=== PATIENT | female | born 1965 | race Caucasian/White ===

== ENCOUNTER 2016-04-13 21:13 | Inpatient (IN) | payer OTHER ==
--- NOTE | ~2016-04-13 | HP ---
History And Physical [facility] [address] [place]. [address] NAME: KARLA BLANK : 67 STATUS : ADM IN [facility]#: [id number] AGE: 50 ADM/REG DATE : 04/13/16 MR#: [id number] REPORT SERV DATE: 04/14/16 DICTATED BY: PADMINI SPENCER DATE: 04/13/16 REPORT STATUS : Draft TRANSCRIBED BY: MODManuel DATE: 04/13/16 DATE OF ADMISSION: 04/13/2016 CHIEF COMPLAINT: Possible overdose, unresponsive. HISTORY OF PRESENT ILLNESS: The patient is a 50-year-old female with history of back pain, unclear cardiac and respiratory issues, on chronic narcotics, Ambien and baclofen, who presents unresponsive. Upon arrival, the patient is unresponsive, unable to give history or presenting issues. The patient is accompanied by daughter who was not at site, but was called by EMS family member who contacted the daughter about being unresponsive state. From daughter's recollection, symptoms of unresponsive has been happening throughout the day, severe, although the patient will know to deep stimuli and painful stimuli. The patient does not respond verbally, is having occasional movement of foot. The patient began with multiple doses of Narcan without resolution of symptoms. Has no reported pain and associated symptoms are not available. There was no reported loss of bowel or bladder function, although daughter who is at bedside reports that there may have been a convulsive component, but she is unclear of this as the patient does not have any seizure history. There are no worsening or relieving symptoms. The patient is still fairly unresponsive, but does show slight improvement while staying in the emergency room. The patient is now spontaneously moving her lower extremity and responds with moaning with even glass handler stimuli. REVIEW OF SYSTEMS: Unable to obtain secondary to mental status. PAST MEDICAL HISTORY: Daughter, who is at bedside, is fairly unclear of medical history, but does report the patient does have a heart and lung disease and thyroid disorder and hernia that has been infected and difficult to resolve. SURGICAL HISTORY: Has had multiple female surgeries, hernia repair, and left knee total replacement. SOCIAL HISTORY: To her daughter's recollection, no smoking, but does have smoke exposure with and does have positive snuff. The patient still has snuff currently in her mouth that was removed. Rare alcohol and no illicits reported. FAMILY HISTORY: Diabetes, heart and lung disease. ALLERGIES: NO KNOWN DRUG ALLERGIES. MEDICATIONS: Levothyroxine, potassium, lisinopril, Lopressor, Zantac, Lasix, gabapentin, Advair, Ambien, [place], and baclofen. PHYSICAL EXAMINATION: VITAL SIGNS: Blood pressure 102/37 initially, currently 117/62; heart rate 82; respirations 24; temperature of 97.6. History And Physical [address] [address] NAME: KARLA BLANK : 67 STATUS : ADM IN PAT#: [id number] AGE: 50 ADM/REG DATE : 04/13/16 MR#: [id number] REPORT SERV DATE: 04/14/16 DICTATED BY: PADMINI SPENCER DATE: 04/13/16 REPORT STATUS : Draft TRANSCRIBED BY: LARON DATE: 04/13/16 GENERAL: Morbidly obese. EYES: Miotic, but no scleral icterus. ENT: Dry mucous membranes with snuff in oropharynx. Nares patent. RESPIRATORY: Mildly tachypneic and decreased breath sounds in lower lung dejesus, but clear upper lung dejesus. No stridor. Does have spontaneous cough. CARDIOVASCULAR: Regular rate. No rubs or gallops. Bilateral edema. GASTROINTESTINAL: Soft, nontender. Old surgical site with hernia defect. GENITOURINARY: Hall placed. MUSCULOSKELETAL: Moves extremities to deep nerve stimulation on upper hands, difficult for lower extremity. SKIN: Warm, dry. Cap refill less than 2 seconds. LYMPH: No cervical lymphadenopathy, but large neck. HEME: No bleeding or bruising. NEURO: GCS approximately 9 to localizing pain, incomprehensible sounds, and response to pain, but remainder of neuro exam difficult to assess due to mental status. Gag reflex reported as positive. The patient does have spontaneous cough. PSYCH: Unable to assess due to mental status. LABORATORY DATA: EKG, normal sinus rhythm, rate 77, QTc 463. The pH 7.36, pCO2 of 53, pO2 of 69, bicarb 29.5. Brain without contrast, no acute pathology, indeterminate age, mild right ethmoid sinus disease. Lactate 1.4. UDS positive for benzos and opioids. BMP grossly within normal limits, mildly low albumin at 2.9, glucose 116, calcium 8.2. Tylenol, troponins, salicylic acid, and alcohol level, all negative. CBC: WBC count 4.5, H and H 11.8 and 37.4, MCV 100, platelets 122. INR 1.1. Urinalysis grossly within normal limits. ASSESSMENT AND PLAN: 1. Acute encephalopathy. 2. Urinary retention. 3. Questionable convulsion. 4. Morbid obesity. 5. Hypothyroidism. 6. Hypertension. 7. Chronic narcotic baclofen, Ambien dependence. PLAN: 1. For acute mental status, acute encephalopathy, unclear as the patient was reported to have taken excess medication and also taking her 's medication. No response to multiple doses of Narcan. While the time has come through our emergency room, the patient has had only increased responsive to tactile stimuli. Questionable baclofen toxicity with acute urinary retention, 1300 mL obtained from Hall. There are unconfirmed reports of possible convulsion state. This may also be from medication, either intoxication or withdrawal, may benefit from EEG. 2. Urinary retention. Hall placed. 3. Questionable convulsion, but no reported loss of bowel or bladder during episode. No prior seizure history. We will obtain EEG, is on multiple medications particularly History And Physical [address] [address] NAME: KARLA BLANK : 67 STATUS : ADM IN [facility]#: [id number] AGE: 50 ADM/REG DATE : 04/13/16 MR#: [id number] REPORT SERV DATE: 04/14/16 DICTATED BY: PADMINI SPENCER DATE: 04/13/16 REPORT STATUS : Draft TRANSCRIBED BY: MODManuel DATE: 04/13/16 baclofen, Ambien, gabapentin, and narcotics. Possible acute withdrawal could cause or acute intoxication could cause similar symptoms. 4. Morbid obesity. Needs to lose weight. 5. Hypothyroidism, on replacement. Check thyroid. 6. Hypertension, permissive at this time. 7. Chronic narcotic use and medication dependence. We will need to monitor. Once history able to be obtained from the patient and family, may need further evaluation, currently no reports of intentional overdose has been reported, but will need to have clarification once the patient is able to report. Care to be resumed by Medicine Team in a.m. as the patient is able to preserve airway, breathing, blood pressure, oxygenation. We will monitor on telemetry. If any decompensation, may require higher level of monitoring. This has been discussed with daughter who is at bedside. DAVE/LARON Padmini Spencer MD / [id number] CC: Fabian Sahu M.D.
--- NOTE | ~2016-04-13 | DS ---
Discharge Summary [facility] [address] [place]. [address] NAME: KARLA BLANK : 67 STATUS : DIS IN PAT#: [id number] AGE: 50 ADM/REG DATE : 04/13/16 MR#: [id number] REPORT SERV DATE: 04/16/16 DICTATED BY: ALEJANDRO BENAVIDES DATE: 04/15/16 REPORT STATUS : Draft TRANSCRIBED BY: MODManuel DATE: 04/15/16 ADMISSION DATE: 04/13/2016 DISCHARGE DATE: 04/15/2016 PROCEDURES DONE: 1. On 04/13/2016 CT of the head without contrast, no acute intracranial pathology. 2. On 04/13/2016 chest x-ray: Pulmonary vascular congestion. This has developed since previous study. 3. On 04/14/2016 chest x-ray: Increased pulmonary vascular congestion compared to previous study. 4. On 04/14/2016 lower extremity DVT. No right or left lower extremity DVT demonstrated. 5. On 04/14/2016 EEG shows no significant abnormalities. Background is disorganized, which may be seen in encephalopathies. There was also a very prominent beta activity present which may be a drug effect. REASON FOR ADMISSION: Unresponsive questionable overdose. HISTORY OF HOSPITAL STAY: A 50-year-old white female with past medical history of back pain on chronic narcotics also with Ambien and baclofen, morbid obesity BMI of 65, hypothyroid, hypotension, presenting with unresponsive questionable overdose. The patient was seen today for further evaluation of her chief complaint. The patient stated that she remembers sleeping on the couch and waking up at the hospital. Family members were at bedside and noticed that the patient is back to her baseline. The patient did take a new medication which was baclofen. The patient states that she was drowsy after taking the medication. The patient felt that the baclofen may be causing her unresponsiveness and felt that she will not take the medication anymore. DISPOSITION: The patient is feeling fine. No complaints. ACTIVITY: As tolerated. DIET: Cardiac. INSTRUCTIONS UPON DISCHARGE: The patient will follow with primary care physician within one to two weeks' time. MEDICATIONS UPON DISCHARGE: 1. Zantac 150 mg p.o. daily. 2. Lasix 20 mg p.o. daily. 3. Gabapentin 300 mg p.o. t.i.d. 4. Synthroid 400 mcg p.o. daily. 5. Metoprolol 12.5 mg p.o. b.i.d. 6. Nystatin topical powder daily. 7. Potassium 10 mEq daily. 8. Lisinopril 10 mg p.o. q.h.s. 9. Advair 250/50 mcg two puffs b.i.d. Discharge Summary [address] [address] NAME: KARLA BLANK : 67 STATUS : DIS IN PAT#: [id number] AGE: 50 ADM/REG DATE : 04/13/16 MR#: [id number] REPORT SERV DATE: 04/16/16 DICTATED BY: ALEJANDRO BENAVIDES DATE: 04/15/16 REPORT STATUS : Draft TRANSCRIBED BY: LARON DATE: 04/15/16 10.Ambien 10 mg p.o. q.h.s. p.r.n. 11.[place] 10/325 mg one tab b.i.d. p.r.n. 12.[place] Headache Powder one packet p.o. b.i.d. p.r.n. DIAGNOSES UPON DISCHARGE: 1. Encephalopathy secondary to overdose with baclofen. 2. Morbid obesity. 3. Hypothyroid. 4. Hypertension. 5. Chronic pain. JOSE/LARON Alejandro Benavides MD / [id number] CC: Alejandro Benavides MD
--- NOTE | ~2016-04-13 | EEG ---
Electroencephalogram [facility] [address] [place]. [address] NAME: KARLA BLANK : 67 STATUS : ADM IN PAT#: [id number] AGE: 50 ADM/REG DATE : 04/13/16 MR#: [id number] REPORT SERV DATE: 04/15/16 DICTATED BY: AR ZIMMERMAN DATE: 04/14/16 REPORT STATUS : Draft TRANSCRIBED BY: LARON DATE: 04/14/16 EEG NUMBER: [id number]. HOURS OF SLEEP: 1 to 2. [employer] INSTRUCTOR: Davis Andrade. INTRODUCTION: This is an 18-channel EEG recorded with scalp electrodes in the International 10-20 system. The patient is a 50-year-old female with an acute encephalopathy and unresponsiveness. There was a question of possible seizure. MEDICATIONS: Include albuterol and Lovenox. She takes pain medications at home, but apparently had received Narcan in the hospital. DESCRIPTION: The background rhythm while awake consisted of a mixture of frequencies, poorly organized. The activity, however, was symmetric. There was very prominent beta activity present throughout the EEG. There was movement artifact present from frontal electrodes as well. Photic stimulation from the 1 through 21 hertz frequencies produced a symmetric driving response at the 11 through 15 hertz frequencies. Hyperventilation was not performed. She became drowsy marked by attenuation of the muscle activity, the appearance of later spindle activity which was seen symmetrically. Occasional vertex sharp waves were present. She had POSTs present from occipital head regions with sleep briefly. On the EKG lead, tachycardia is noted. IMPRESSION: THIS EEG SHOWS NO SIGNIFICANT ABNORMALITIES. THE BACKGROUND IS DISORGANIZED, WHICH MAY BE SEEN IN ENCEPHALOPATHIES. THERE IS ALSO VERY PROMINENT BETA ACTIVITY PRESENT, WHICH MAY BE A DRUG DEFECT. HILTON/LARON Ar Zimmerman M.D. / [id number] CC: Michael Douglas MD
[2016-04-13 19:48] LABS: WBC (NOT ORDERED) (RFLEX) 0 (0-5)
[2016-04-13 19:52] LABS: BASOPHILS 0.2 %; BASOPHILS ABSOLUTE 0.01 10/3/uL (0.0-0.16); EOSINOPHILS ABSOLUTE 0.31 10/3/uL (0.0-0.53); HEMOGLOBIN 11.8 g/dL (12.0-16.0); IMMATURE GRANULOCYTES 0.7 %; IMMATURE GRANULOCYTES ABSOLUTE 0.03 10/3/uL (0.0-0.11); LYMPHOCYTES 38.7 %; LYMPHOCYTES ABSOLUTE 1.72 10/3/uL (0.67-4.30); MEAN CORPUSCULAR HEMOGLOB 31.6 pg (26.0-34.0); MEAN PLATELET VOLUME 10.5 fL (9.2-13.0); MONOCYTES 9.7 %; MONOCYTES ABSOLUTE 0.43 10/3/uL (0.21-1.20); NEUTROPHILS 43.7 %; NEUTROPHILS ABSOLUTE 1.95 10/3/uL (2.02-8.40); PLATELET COUNT 122 10/3/uL (150-400); RED CELL COUNT 3.74 10/6/uL (4.0-5.6); WHITE BLOOD CELLS 4.5 10/3/uL (4.5-10.5)
[2016-04-13 19:53] LABS: HEMATOCRIT 37.4 % (36.0-48.0); MANUAL DIFF NO %; MEAN CORPUS HGB CONC 31.6 g/dL (32.0-36.0)
[2016-04-13 19:58] LABS: ASCORBIC ACID (UR NOT ORDER) NEG (NEG); BILIRUBIN, URINE NEGATIVE (NEG); ER URINALYSIS TAT 0 Hrs 12 Mins; KETONE, URINE NEGATIVE (NEG); LEUKOCYTE ESTERASE(NOT OR NEG (NEG); NITRITE (URINE) NEG (NEG)
[2016-04-13 20:02] LABS: INTERNATIONAL NORMAL RATI 1.1 UNITS (-); PROTIME (NOT ORD) 13.6 SEC (12.0-14.5)
[2016-04-13 20:07] LABS: A/G RATIO 0.7 (0.7-1.9); ALBUMIN 2.9 G/DL (3.5-5.0); ALKALINE PHOSPHATASE 83 U/L (45-117); BUN (BLOOD UREA NITROGEN) 10 MG/DL (6-23); CALCIUM, SERUM 8.2 MG/DL (8.5-10.4); CHLORIDE, SERUM 101 MMOL/L (96-112); CO2 (CARBON DIOXIDE) 32 MMOL/L (24-34); CPK 75 U/L (0-200); CREATININE 0.68 MG/DL (0.55-1.02); GFR AFRICAN AMERICAN 119 ML/MIN (>=60); GFR NON AFRICAN AMERICAN 103 ML/MIN (>=60); GLOBULIN 3.9 G/DL (2.5-4.1); GLUCOSE, SERUM 116 MG/DL (60-99); SGPT(ALT) 14 U/L (5-65); SODIUM, SERUM 139 MMOL/L (135-148); TOTAL BILIRUBIN 0.6 MG/DL (0-1.2); TOTAL PROTEIN 6.8 G/DL (6.0-8.5); TROPONIN I <0.02 NG/ML (<0.05)
[2016-04-13 20:09] LABS: POTASSIUM, SERUM 4.5 MMOL/L (3.5-5.3)
[2016-04-13 20:10] LABS: ACETAMINOPHEN LEVEL (TYLENOL) < 2.0 MCG/ML (10.0-20.0); ALCOHOL < 10 MG/DL (0); SALICYLATE < 1.7 MG/DL (-); SGOT(AST) 24 U/L (5-40)
[2016-04-13 20:12] LABS: AMPHETAMINES (NOT ORD) NEG (NEG); BARBITURATES (NOT ORDERED NEG (NEG); BENZODIAZEPINES (NOT ORD) POS (NEG); CANNABINOIDS (THC) NEG (NEG); COCAINE (NOT ORDERED) NEG (NEG); OPIATES POS (NEG); PHENCYCLIDINE(PCP) NEG (NEG); TRICYCLICS NEG (NEG)
[2016-04-13 20:28] LABS: LACTATE 1.4 MMOL/L (0.3-2.4)
[~2016-04-13 21:13] MED LIST: *UNABLE2; ADVAIR250 INH; AMB10 PO; AVELOX400 PO; DEMA20 PO; KDUR10 PO; KLOR-CON 1010 MEQ PO; L20 PO; LEVOTHROID25 MCG PO; LIOR10 PO; LOP25 PO; NEUR300 PO; NORCO1 TAB PO; PRIN10 PO; SYNTHROID200 MCG PO; ZANTAC 150 PO; ZANTAC150 MG PO; [UNRECOGNIZED DRUG - OTHER]
[2016-04-13 21:21] LABS: ALLENS TEST Pos; CARBOXYHEMOGLOBIN 2.3 % (0-3); HCO3 (ACTUAL BICARBONATE) 29.5 MEQ/L (23-27); HEMOBLOGIN CONTENT 12.9 G/DL (12-16); INSTRUMENT SERIAL # 8087; METHEMOGLOBIN 0.1 % (0-3); O2 CONTENT 16.6 VOL% (18-24); PCO2 (CO2 TENSION) 53 MMHG (35-45); PO2 (O2 TENSION) 69 MMHG (79-93); SAMPLE Arterial; pH 7.36 (7.37-7.43)
[2016-04-14 04:19] LABS: ASCORBIC ACID (UR NOT ORDER) NEG (NEG); BILIRUBIN, URINE NEGATIVE (NEG); KETONE, URINE NEGATIVE (NEG); LEUKOCYTE ESTERASE(NOT OR MOD (NEG); WBC (NOT ORDERED) (RFLEX) 20 (0-5)
[2016-04-14] MEDS ORDERED: CAFFEINE PO (10:25)
[2016-04-14] MEDS ORDERED: ASPIRIN PO (10:25)
[2016-04-14] MEDS ORDERED: NYSTATPOW TOP (10:26)
[2016-04-14 13:21] LABS: BASOPHILS 0.4 %; BASOPHILS ABSOLUTE 0.02 10/3/uL (0.0-0.16); EOSINOPHILS 3.5 %; EOSINOPHILS ABSOLUTE 0.16 10/3/uL (0.0-0.53); HEMATOCRIT 36.9 % (36.0-48.0); HEMOGLOBIN 11.7 g/dL (12.0-16.0); IMMATURE GRANULOCYTES 0.2 %; IMMATURE GRANULOCYTES ABSOLUTE 0.01 10/3/uL (0.0-0.11); LYMPHOCYTES 32.1 %; LYMPHOCYTES ABSOLUTE 1.45 10/3/uL (0.67-4.30); MANUAL DIFF NO %; MEAN CORPUS HGB CONC 31.7 g/dL (32.0-36.0); MEAN CORPUSCULAR HEMOGLOB 31.5 pg (26.0-34.0); MEAN CORPUSCULAR VOLUME 99.2 fL (80-100); MEAN PLATELET VOLUME 10.7 fL (9.2-13.0); MONOCYTES 9.1 %; MONOCYTES ABSOLUTE 0.41 10/3/uL (0.21-1.20); NEUTROPHILS 54.7 %; NEUTROPHILS ABSOLUTE 2.47 10/3/uL (2.02-8.40); PLATELET COUNT 126 10/3/uL (150-400); RBC DISTRIBUTION WIDTH 15.1 % (12.0-16.0); RED CELL COUNT 3.72 10/6/uL (4.0-5.6); WHITE BLOOD CELLS 4.5 10/3/uL (4.5-10.5)
[2016-04-14 13:38] LABS: BUN (BLOOD UREA NITROGEN) 11 MG/DL (6-23); CALCIUM, SERUM 8.7 MG/DL (8.5-10.4); CHLORIDE, SERUM 106 MMOL/L (96-112); CO2 (CARBON DIOXIDE) 31 MMOL/L (24-34); CPK 515 U/L (0-200); CREATININE 0.55 MG/DL (0.55-1.02); GFR AFRICAN AMERICAN 128 ML/MIN (>=60); GFR NON AFRICAN AMERICAN 110 ML/MIN (>=60); GLUCOSE, SERUM 104 MG/DL (60-99); POTASSIUM, SERUM 4.5 MMOL/L (3.5-5.3); SODIUM, SERUM 144 MMOL/L (135-148); TROPONIN I <0.02 NG/ML (<0.05)
[2016-04-15 07:17] LABS: BASOPHILS 0.5 %; BASOPHILS ABSOLUTE 0.02 10/3/uL (0.0-0.16); EOSINOPHILS 5.3 %; EOSINOPHILS ABSOLUTE 0.23 10/3/uL (0.0-0.53); HEMATOCRIT 39.5 % (36.0-48.0); HEMOGLOBIN 12.6 g/dL (12.0-16.0); IMMATURE GRANULOCYTES 0.5 %; IMMATURE GRANULOCYTES ABSOLUTE 0.02 10/3/uL (0.0-0.11); LYMPHOCYTES ABSOLUTE 1.74 10/3/uL (0.67-4.30); MANUAL DIFF NO %; MEAN CORPUS HGB CONC 31.9 g/dL (32.0-36.0); MEAN CORPUSCULAR HEMOGLOB 31.6 pg (26.0-34.0); MEAN PLATELET VOLUME 10.3 fL (9.2-13.0); MONOCYTES 11.3 %; MONOCYTES ABSOLUTE 0.49 10/3/uL (0.21-1.20); NEUTROPHILS 42.4 %; NEUTROPHILS ABSOLUTE 1.85 10/3/uL (2.02-8.40); PLATELET COUNT 122 10/3/uL (150-400); RBC DISTRIBUTION WIDTH 15.1 % (12.0-16.0); RED CELL COUNT 3.99 10/6/uL (4.0-5.6); WHITE BLOOD CELLS 4.4 10/3/uL (4.5-10.5)
[2016-04-15 07:45] LABS: BUN (BLOOD UREA NITROGEN) 12 MG/DL (6-23); CHLORIDE, SERUM 104 MMOL/L (96-112); CO2 (CARBON DIOXIDE) 31 MMOL/L (24-34); CREATININE 0.57 MG/DL (0.55-1.02); GFR AFRICAN AMERICAN 126 ML/MIN (>=60); GFR NON AFRICAN AMERICAN 109 ML/MIN (>=60); GLUCOSE, SERUM 105 MG/DL (60-99); POTASSIUM, SERUM 3.7 MMOL/L (3.5-5.3); SODIUM, SERUM 143 MMOL/L (135-148)
== END 2016-04-15 18:38 | disposition home or self-care (01) | DRG 917 ==
LOC: ER 21:13 → 6NO 23:13
PROVIDERS: Internal Medicine; Specialist; Student in an Organized Health Care Education/Training Program
DX: T42.8X1A Poisoning by antiparkinsonism drugs and other central muscle-tone depressants, accidental (unintentional), initial encounter (principal); G92 Toxic encephalopathy; Z68.43 Body mass index [BMI] 50.0-59.9, adult; F11.20 Opioid dependence, uncomplicated; E03.9 Hypothyroidism, unspecified; E66.01 Morbid (severe) obesity due to excess calories; R33.9 Retention of urine, unspecified; G89.29 Other chronic pain; Z96.652 Presence of left artificial knee joint
CPT/HCPCS: 36600; 70450; 71010; 80048; 80053; 80305; 80307; 81001; 82550; 82805; 83605; 83690; 83735; 84443; 84484; 85025; 85379; 85610; 85730; 87040; 87086; 93005; 93970; 94640; 95819; 96374; 97161-GP; 97165-GO; 99291; A9270-GY; J2310